=== PATIENT | male | born 1965 | race Caucasian/White ===

== ENCOUNTER 2017-09-28 17:45 | Emergency (ER) | payer BC ==
[2017-09-28] MEDS ORDERED: Ketorolac 30 MG/ML SDV IM ONE (19:06)
[2017-09-28] MEDS ORDERED: cefTRIAXone 1 GM, Lidocaine 1% 2.1 ML IM ONE ×2 (19:06)
--- NOTE | 2017-09-28 19:11 | EDM.PDOC ---
ED HPI GENERAL MEDICAL PROBLEM - General Chief Complaint: ENT Problem Stated Complaint: COLD [id number] Time Seen by Provider: 09/28/17 19:07 Source of Information: Reports: Patient History Limitations: Reports: No Limitations - History of Present Illness INITIAL COMMENTS - FREE TEXT/NARRATIVE: c/o few days h/o increasing sore throat Throat Pain Score (Numeric/FACES): 7 - Related Data Allergies Allergy/AdvReac Type Severity Reaction Status Date / Time Penicillins Allergy Hives Verified 09/28/17 18:00 Home Meds: Home Meds Albuterol [Proventil Neb Soln] 1 dose INH TID PRN 09/28/17 [History] Past Medical History HEENT History: Reports: None Cardiovascular History: Reports: None Respiratory History: Reports: SOB Gastrointestinal History: Reports: None Genitourinary History: Reports: None Musculoskeletal History: Reports: None Neurological History: Reports: None Psychiatric History: Reports: None Endocrine/Metabolic History: Reports: None Hematologic History: Reports: None Immunologic History: Reports: None Oncologic (Cancer) History: Reports: None Dermatologic History: Reports: None - Infectious Disease History Infectious Disease History: Reports: None Social & Family History - Tobacco Use Smoking Status *Q: Current Every Day Smoker Years of Tobacco use: 35 Packs/Tins Daily: 1 Second Hand Smoke Exposure: No - Caffeine Use Caffeine Use: Reports: Coffee - Recreational Drug Use Recreational Drug Use: No ED ROS ENT - Review of Systems Review Of Systems: ROS reveals no pertinent complaints other than HPI. ED EXAM, ENT - Physical Exam Exam: See Below Exam Limited By: No Limitations General Appearance: Alert, WD/WN, Mild Distress, Other (discomfort) Ears: Hearing Grossly Normal Mouth/Throat: Pharyngeal Erythema, Tonsillar Erythema, Tonsillar Swelling Head: Atraumatic Neck: Non-Tender, Full Range of Motion Respiratory/Chest: No Respiratory Distress Cardiovascular: Regular Rate, Rhythm GI/Abdominal: Soft, Non-Tender Neurological: Alert, Oriented, Normal Cognition, Normal Gait, No Motor/Sensory Deficits Psychiatric: Flat Affect Skin: Warm, Dry, Normal Color Lymphatic: No Adenopathy Course - Vital Signs Last Recorded V/S: Last Vital Signs Temp 36.6 C 09/28/17 17:51 Pulse 88 09/28/17 17:51 Resp 16 09/28/17 17:51 BP 192/104 H 09/28/17 17:51 Pulse Ox 97 01/20/18 17:51 - Orders/Labs/Meds Orders: Active Orders 24 hr Category Date Time Status CULTURE STREP A CONFIRMATION [] Stat Lab 09/28/17 17:55 Results STREP SCRN A RAPID W CULT CONF [] Stat Lab 09/28/17 17:55 Results Ketorolac [Toradol] Med 09/28/17 19:06 Once 30 mg IM ONETIME ONE cefTRIAXone 1 GM,Lidocaine 1% 2.1 ML Med 09/28/17 19:06 Ordered cefTRIAXone [Rocephin] 1 gm Lidocaine 1% [Xylocaine-MPF 1%] 2.1 ml IM ONETIME Medication Orders Ceftriaxone Sodium 1 gm/ (Lidocaine HCl 2.1 ml) 0 gm IM ONETIME ONE Stop: 09/28/17 19:07 Ketorolac Tromethamine (Toradol) 30 mg IM ONETIME ONE Stop: 09/28/17 19:07 Meds: Medications Generic Name Dose Route Start Last Admin Trade Name Abbeq PRN Reason Stop Dose Admin Ceftriaxone Sodium 1 gm/ 0 gm 09/28/17 19:06 Lidocaine HCl 2.1 ml IM 09/28/17 19:07 ONETIME ONE Ketorolac Tromethamine 30 mg 09/28/17 19:06 Toradol IM 09/28/17 19:07 ONETIME ONE Departure - Departure Time of Disposition: 19:09 Disposition: Home, Self-Care 01 Condition: Good Clinical Impression: Tonsillitis - Discharge Information Instructions: Tonsillitis, [id number] Additional Instructions: 1) avoid solid foods and scratchy foods next few days 2) have popsicle, jello, juice, smoothies, broth 3) take tylenol or motrin for fever 4) recheck as needed rx given; z-coco - My Orders Last 24 Hours: My Active Orders 09/28/17 19:06 Ketorolac [Toradol] 30 mg IM ONETIME ONE cefTRIAXone 1 GM,Lidocaine 1% 2.1 ML cefTRIAXone [Rocephin] 1 gm Lidocaine 1% [ Xylocaine-MPF 1%] 2.1 ml IM ONETIME - Assessment/Plan Last 24 Hours: My Active Orders 09/28/17 19:06 Ketorolac [Toradol] 30 mg IM ONETIME ONE cefTRIAXone 1 GM,Lidocaine 1% 2.1 ML cefTRIAXone [Rocephin] 1 gm Lidocaine 1% [ Xylocaine-MPF 1%] 2.1 ml IM ONETIME
== END 2017-09-28 19:33 | disposition home or self-care (01) ==
LOC: DL.ED 17:45
DX: J03.90 Acute tonsillitis, unspecified (principal); F17.210 Nicotine dependence, cigarettes, uncomplicated; Z88.0 Allergy status to penicillin
CPT/HCPCS: 87081; 87430; 96372; 99283; J0696; J1885

== ENCOUNTER 2019-06-01 14:55 | Inpatient (IN) | payer BC ==
--- NOTE | 2019-06-01 15:27 | EDM.PDOC ---
ED HPI GENERAL MEDICAL PROBLEM - General Chief Complaint: Lower Extremity Injury/Pain Stated Complaint: BLOOD CLOUGHT IN RIGHT LEG PER PT Time Seen by Provider: 06/01/19 15:27 Source of Information: Reports: Patient, Family, Provider (Estella Calloway PA-C), RN, RN Notes Reviewed History Limitations: Reports: No Limitations - History of Present Illness INITIAL COMMENTS - FREE TEXT/NARRATIVE: Pt to ER from [facility] with c/o DVT. Patient was seen in the clinic by Estella Calloway PA-C for pain, redness, swelling, warmth, to the right lower leg. Patient was sent to radiology for Ultrasound. Was found to have an extensive DVT in the right lower leg. Patient states the pain in the leg began last week . States it has progressively gotten worse. Patient admits to increased SOB recently. Denies chest pains. Denies hx of blood clots, denies recent travel (flying or long drives). States he smoke 1 1/2 packs per day. Onset: Gradual Duration: Constant, Getting Worse Location: Reports: Lower Extremity, Right Quality: Reports: Ache, Throbbing Right Lower Leg Pain Score (Numeric/FACES): 6 - Related Data Allergies Allergy/AdvReac Type Severity Reaction Status Date / Time Penicillins Allergy Hives Verified 09/28/17 18:00 Home Meds: Home Meds Albuterol [Proventil Neb Soln] 1 dose INH TID PRN 09/28/17 [History] Past Medical History - Past Health History Medical/Surgical History: Denies Medical/Surgical History HEENT History: Reports: None Cardiovascular History: Reports: None Respiratory History: Reports: SOB Gastrointestinal History: Reports: None Genitourinary History: Reports: None Musculoskeletal History: Reports: None Neurological History: Reports: None Psychiatric History: Reports: None Endocrine/Metabolic History: Reports: None Hematologic History: Reports: None Immunologic History: Reports: None Oncologic (Cancer) History: Reports: None Dermatologic History: Reports: None - Infectious Disease History Infectious Disease History: Reports: None - Past Surgical History Musculoskeletal Surgical History: Reports: Shoulder Surgery Social & Family History - Family History Family Medical History: Noncontributory - Caffeine Use Caffeine Use: Reports: Coffee, Soda Review of Systems - Review of Systems Review Of Systems: ROS reveals no pertinent complaints other than HPI. ED EXAM, GENERAL - Physical Exam Exam: See Below Exam Limited By: No Limitations General Appearance: Alert, WD/WN, No Apparent Distress Eye Exam: Bilateral Eye: EOMI, Normal Inspection Ears: Normal External Exam, Hearing Grossly Normal Nose: Normal Inspection Throat/Mouth: Normal Inspection, Normal Voice, No Airway Compromise Head: Atraumatic, Normocephalic Neck: Normal Inspection, Supple, Non-Tender, Full Range of Motion Respiratory/Chest: No Respiratory Distress, No Accessory Muscle Use, Chest Non- Tender, Crackles (bases bilaterally) Cardiovascular: Normal Peripheral Pulses, Regular Rate, Rhythm, No Edema, No Gallop, No JVD, No Murmur, No Rub Peripheral Pulses: 2+: Radial (L), Radial (R) GI/Abdominal: Normal Bowel Sounds, Soft, Non-Tender, No Organomegaly, No Distention, No Abnormal Bruit, No Mass, Pelvis Stable (Male) Exam: Deferred Rectal (Males) Exam: Deferred Back Exam: Normal Inspection, Full Range of Motion, NT Extremities: Yani's Sign, Leg Pain (right lower leg), Increased Warmth (right lower leg), Redness (right lower leg), Other (swelling of the right lower leg) Neurological: Alert, Oriented, CN II-XII Intact, Normal Cognition, Normal Gait, Normal Reflexes, No Motor/Sensory Deficits Psychiatric: Normal Affect, Normal Mood Skin Exam: Warm, Dry, Intact, Erythema (right lower leg), Increased Warmth ( right lower leg) Lymphatic: No Adenopathy Course - Vital Signs Last Recorded V/S: Last Vital Signs Temp 97.3 F 06/01/19 18:02 Pulse 80 06/01/19 18:02 Resp 20 06/01/19 18:02 BP 154/102 H 06/01/19 18:02 Pulse Ox 96 06/01/19 18:02 - Orders/Labs/Meds Orders: Active Orders 24 hr Category Date Time Status EKG Documentation Completion [RC] STAT Care 06/01/19 15:14 Active Chest w Cont [CT] Urgent Exams 06/01/19 16:06 Taken Sodium Chloride 0.9% [Saline Flush] Med 06/01/19 15:10 Active 10 ml FLUSH ASDIRECTED PRN Peripheral IV Insertion Adult [OM.PC] Stat Oth 06/01/19 15:10 Ordered Medication Orders Acetaminophen (Tylenol) 650 mg PO Q4H PRN PRN Reason: Pain (Mild 1-3)/fever Albuterol (Proventil Neb Soln) 2.5 mg NEB Q2H PRN PRN Reason: shortness of breath/wheezing Enoxaparin Sodium (Lovenox) 100 mg SUBCUT Q12HR [facility] Sodium Chloride (Normal Saline) 1,000 mls @ 75 mls/hr IV ASDIRECTED [facility] Ceftriaxone Sodium 1 gm/ (Sodium Chloride) 50 mls @ 50 mls/hr IV Q24H [facility] Insulin Human Lispro (Humalog) 0 unit SUBCUT WITHMEALSANDBED CARMELA; Protocol Morphine Sulfate (Morphine) 2 mg IVPUSH Q2H PRN PRN Reason: Pain (severe 7-10) Nicotine (Habitrol) 21 mg TRDERM DAILY [facility] Oxycodone HCl (Oxycodone) 5 mg PO Q4H PRN PRN Reason: Pain (moderate 4-6) Sodium Chloride (Saline Flush) 10 ml FLUSH ASDIRECTED PRN PRN Reason: Keep Vein Open Last Admin: 06/01/19 16:18 Dose: 10 ml Warfarin Sodium (Coumadin) 5 mg PO DAILY [facility] Labs: Laboratory Tests 06/01/19 06/01/19 06/01/19 Range/Units 15:19 15:19 15:19 WBC 6.7 (5.0-10.0) 10^3/uL RBC 5.10 (4.6-6.2) 10^6/uL Hgb 16.7 (14.0-18.0) g/dL Hct 47.1 (40.0-54.0) % MCV 92.4 (80-100) fL MCH 32.7 (27.0-34.0) pg MCHC 35.5 H (33.0-35.0) g/dL Plt Count 154 (150-450) 10^3/uL Neut % (Auto) 63.7 (42.2-75.2) % Lymph % (Auto) 22.0 (20.5-50.1) % [place] % (Auto) 12.1 H (2-8) % Eos % (Auto) 2.1 (1.0-3.0) % Baso % (Auto) 0.1 (0.0-1.0) % PT 9.6 (9.0-12.0) SEC INR 0.9 (0.9-1.2) D-Dimer, Quantitative 1190 H (0-400) ng/mL Sodium 134 L (135-145) mmol/L Potassium 4.1 (3.6-5.0) mmol/L Chloride 98 L (101-111) mmol/L Carbon Dioxide 27.0 (21.0-31.0) mmol/L Anion Gap 13.1 BUN 13 (7-18) mg/dL Creatinine 0.8 (0.6-1.3) mg/dL Est Cr Clr Drug Dosing 110.26 mL/min Estimated GFR (MDRD) > 60 BUN/Creatinine Ratio 16.25 Glucose 329 H (74-105) mg/dL Calcium 9.0 (8.4-10.2) mg/dl Total Bilirubin 0.8 (0.2-1.0) mg/dL AST 41 (10-42) IU/L ALT 65 H (10-60) IU/L Alkaline Phosphatase 56 (42-121) IU/L Total Protein 7.8 (6.7-8.2) g/dl Albumin 4.0 (3.2-5.5) g/dl Globulin 3.8 Albumin/Globulin Ratio 1.05 Meds: Medications Generic Name Dose Route Start Last Admin Trade Name Freq PRN Reason Stop Dose Admin Acetaminophen 650 mg 06/01/19 18:02 Tylenol PO Q4H PRN Pain (Mild 1-3)/fever Albuterol 2.5 mg 06/01/19 18:02 Proventil Neb Soln NEB Q2H PRN shortness of breath/wheezing Enoxaparin Sodium 100 mg 06/01/19 21:00 Lovenox SUBCUT Q12HR [facility] Sodium Chloride 1,000 mls @ 75 mls/hr 06/01/19 18:15 Normal Saline IV ASDIRECTED [facility] Ceftriaxone Sodium 1 gm/ 50 mls @ 50 mls/hr 06/01/19 18:15 Sodium Chloride IV Q24H [facility] Insulin Human Lispro 0 unit 06/01/19 21:00 Humalog SUBCUT WITHMEALSANDBED [facility] Protocol Morphine Sulfate 2 mg 06/01/19 18:02 Morphine IVPUSH Q2H PRN Pain (severe 7-10) Nicotine 21 mg 06/02/19 09:00 Habitrol TRDERM DAILY [facility] Oxycodone HCl 5 mg 06/01/19 18:02 Oxycodone PO Q4H PRN Pain (moderate 4-6) Sodium Chloride 10 ml 06/01/19 15:10 06/01/19 16:18 Saline Flush FLUSH 10 ml ASDIRECTED PRN Administration Keep Vein Open Warfarin Sodium 5 mg 06/01/19 18:15 Coumadin PO DAILY [facility] Discontinued Medications Generic Name Dose Route Start Last Admin Trade Name Freq PRN Reason Stop Dose Admin Heparin Sodium (Porcine) 4,000 units 06/01/19 15:40 06/01/19 16:17 Heparin Sodium IVPUSH 06/01/19 15:41 4,000 units .BOLUS ONE Administration Heparin Sodium/Sodium Chloride 25,000 units in 500 mls @ 35.631 mls/hr 15:45 06/01/19 16:18 Heparin 25,000 Units In 1/2 Ns 500 Ml IV 18 units/kg/hr TITRATE CARMELA 35.631 mls/hr Administration Protocol 18 UNITS/KG/HR Iopamidol 100 ml 06/01/19 16:06 06/01/19 16:39 Isovue-370 (76%) IVPUSH 06/01/19 16:07 80 ml ONETIME ONE Administration Morphine Sulfate 2 mg 06/01/19 16:20 06/01/19 16:29 Morphine IVPUSH 06/01/19 16:21 2 mg ONETIME ONE Administration - Radiology Interpretation Free Text/Narrative:: Venous Doppler Lower ext. Right: Deep vein thrombosis right lower extremity See rad report PE study/ chest CT with contrast: FINDINGS: Lungs: There is calcified granuloma right middle lobe. 3 mm nodule right lung base Pleural space: Unremarkable. No pneumothorax. No pleural effusion. Heart: Unremarkable. No cardiomegaly. No pericardial effusion. Aorta: Unremarkable. No aortic aneurysm. Lymph nodes: Unremarkable. No enlarged lymph nodes. Liver: Liver has peripheral nodular contour. Gallbladder and bile ducts: There is a calcified gallstone. Bones/joints: Unremarkable. No acute fracture. Soft tissues: Unremarkable. IMPRESSION: 1. No acute pulmonary embolism. 2. Suggestion of mild hepatic cirrhosis 3. Cholelithiasis 4. 3 mm right lower lobe nodule.For patients at low risk (minimal or absent history of smoking and of other known risk factors), no routine follow-up is indicated. For patients at high risk (history of smoking or of other known risk factors), consider optional CT at 12 months. ( Tonia et al., Fleischner Society, 2017) Thank you for allowing us to participate in the care of your patient. Dictated and Authenticated by: Jose Yen MD 06/01/2019 5:01 PM Central Time ([place] & [place]) - Re-Assessments/Exams Free Text/Narrative Re-Assessment/Exam: 06/01/19 18:43 Discussed patient case with Dr. Patel who agreed to accept the patient for inpatient admission to [facility]. Departure - Departure Time of Disposition: 17:15 Disposition: Admitted As Inpatient 66 Condition: Fair Clinical Impression: Hyperglycemia DVT (deep venous thrombosis) Qualifiers: DVT location: lower extremity Affected thrombotic vein of extremity: popliteal Chronicity: acute Laterality: right Qualified Code(s): I82.431 - Acute embolism and thrombosis of right popliteal vein - Discharge Information *PRESCRIPTION DRUG MONITORING PROGRAM REVIEWED*: No *COPY OF PRESCRIPTION DRUG MONITORING REPORT IN PATIENT JOLIE: No - My Orders Last 24 Hours: My Active Orders 06/01/19 15:10 Sodium Chloride 0.9% [Saline Flush] 10 ml FLUSH ASDIRECTED PRN Peripheral IV Insertion Adult [OM.PC] Stat 06/01/19 15:14 EKG Documentation Completion [RC] STAT 06/01/19 16:06 Chest w Cont [CT] Urgent - Assessment/Plan Last 24 Hours: My Active Orders 06/01/19 15:10 Sodium Chloride 0.9% [Saline Flush] 10 ml FLUSH ASDIRECTED PRN Peripheral IV Insertion Adult [OM.PC] Stat 06/01/19 15:14 EKG Documentation Completion [RC] STAT 06/01/19 16:06 Chest w Cont [CT] Urgent
[2019-06-01] MEDS ORDERED: Heparin Sodium 5,000 Units/ML Vial IVPUSH ONE (15:40)
[2019-06-01] MEDS ORDERED: Heparin Sodium/0.45% NaCl 25,000 UNITS/500 ML BAG IV SCH (15:45)
[2019-06-01 15:51] LABS: ANION GAP 13.1; CHLORIDE,CL 98 mmol/L (101-111); SODIUM,NA 134 mmol/L (135-145)
[2019-06-01] MEDS ORDERED: Iopamidol 755 Mg/ML 100 ML Bottle IVPUSH ONE (16:06)
[2019-06-01] MEDS: Sodium Chloride 0.9% 10 ML Syringe FLUSH PRN ×2 (16:18→19:22)
[2019-06-01] MEDS ORDERED: Morphine 2 MG/ML Syringe IVPUSH ONE (16:20)
[2019-06-01] MEDS ORDERED: Morphine 2 MG/ML Syringe IVPUSH PRN (18:02)
[2019-06-01] MEDS ORDERED: Acetaminophen 325 MG Tab PO PRN (18:02)
[2019-06-01] MEDS ORDERED: Albuterol 0.083% 2.5 MG/3 ML Neb Soln NEB PRN (18:02)
[2019-06-01] MEDS ORDERED: Warfarin 5 MG Tab PO SCH (18:15)
[2019-06-01] MEDS ORDERED: Sodium Chloride 0.9% 1,000 ML IV SCH (18:15)
[2019-06-01] MEDS: cefTRIAXone 1 GM in Sodium Chloride 0.9% 50 ML IV SCH (19:55)
[2019-06-01] MEDS: oxyCODONE 5 MG Tab PO PRN (20:02)
[2019-06-01] MEDS: Nicotine 21 MG/24 Hr Patch TRDERM SCH (21:20)
[2019-06-01] MEDS: Enoxaparin 100 MG/1 ML Syringe SUBCUT SCH (21:20)
[2019-06-01] MEDS: Insulin Lispro 100 Units/ML 3 ML Vial SUBCUT SCH (21:22)
[2019-06-01] MEDS ORDERED: Warfarin 2.5 MG Tab PO ONE (22:00)
--- NOTE | 2019-06-02 00:14 | HP ---
CHIEF COMPLAINT: Acute DVT of the right leg. HISTORY OF PRESENT ILLNESS: The patient is a 53-year-old male, was admitted through the emergency room after the patient was diagnosed at the [facility] with acute DVT of the right lower leg. According to the patient, he has been having this pain and swelling of the right lower leg that has been going on for the last 5 days. He denies any injury or trauma. He does admit that he is short of breath, but denies any chest pain, abdominal pain, melena, hematochezia, or any bleeding tendencies. Because of these above symptoms, he was seen at the [facility] and had ultrasound of the right leg, which showed extensive DVT of the right lower leg. The patient was then sent to the emergency room. He had a CAT scan of the chest and there was no pulmonary embolism noted, but there is cholelithiasis and there is a 3 mm right lower lobe nodule on the CAT scan of the chest, and because of this acute DVT of the right lower leg, he was then admitted for further evaluation and management. PAST MEDICAL HISTORY: Denies any significant past medical history. FAMILY HISTORY: Noncontributory. There is no history of DVT or pulmonary embolism. SOCIAL HISTORY: The patient is a smoker, 1-1/2 packs a day, and drinks alcohol/beer on a regular basis, but no illicit drug use. REVIEW OF SYSTEMS: As in HPI. The rest of the review of systems is negative. The patient denies any flying or long drives. HOME MEDICATION: Albuterol p.r.n. ALLERGIES: Penicillin. PHYSICAL EXAMINATION: GENERAL: The patient is alert and oriented, not in any acute respiratory distress. VITAL SIGNS: Blood pressure is 149/74, pulse of 70, respirations 16, temperature of 98.1, saturation is 99%. SHEENT: Normocephalic. There are pink palpebral conjunctivae. Sclerae anicteric. No JVD, no lymphadenopathy. HEART: Regular rate and rhythm. Normal S1 and S2. No gallops. No rubs. No murmurs. LUNGS: Remarkable for scattered expiratory wheeze bilaterally. ABDOMEN: Soft, nontender, bowel sounds positive. EXTREMITIES: Negative for any signs of cellulitis, but there is some mild redness and swelling and tenderness on the right lower leg. LABORATORY WORKUP: CBC: WBC 6.7, hemoglobin is 16.7, hematocrit is 47.1, platelets 154. D-dimer is 1190. Comp panel: Sodium is 134, glucose is 329. ALT is 65, the rest of the panel unremarkable. ADMITTING DIAGNOSES: 1. Acute deep venous thrombosis of the right lower leg. 2. Tobacco habituation. 3. Acute bronchitis. 4. Hyperglycemia, suspected diabetes mellitus. TREATMENT PLAN: The patient is going to be admitted to General Medicine Floor. The patient was started on heparin drip in the emergency room and this will be continued. We will also start the patient on Coumadin, and he will be given IV antibiotics for bronchitis symptoms and signs of COPD, and we will also check for hemoglobin A1c. The rest of the management as necessary. The patient is a full code. [facility] /[id number]
[2019-06-02 06:47] LABS: ANION GAP 11.1; CHLORIDE,CL 97 mmol/L (101-111); SODIUM,NA 133 mmol/L (135-145)
[2019-06-02] MEDS: oxyCODONE 5 MG Tab PO PRN ×3 (07:32→21:03)
[2019-06-02] MEDS: Insulin Lispro 100 Units/ML 3 ML Vial SUBCUT SCH ×4 (08:15→21:01)
[2019-06-02] MEDS: Nicotine 21 MG/24 Hr Patch TRDERM SCH (08:16)
[2019-06-02] MEDS: Enoxaparin 100 MG/1 ML Syringe SUBCUT SCH ×2 (08:16→21:05)
[2019-06-02] MEDS ORDERED: Sodium Chloride 0.9% 10 ML Syringe FLUSH PRN (09:04)
[2019-06-02] MEDS: predniSONE 20 MG Tab PO SCH (10:20)
[2019-06-02] MEDS: Azithromycin 250 MG Tab PO SCH (10:21)
--- NOTE | 2019-06-02 11:46 | PN ---
DATE: 06/02/2019 SUBJECTIVE: The patient did not have a good night's sleep because of the right lower leg pain and also with regard to his wheezing and some shortness of breath. The patient denies though any chest pain, orthopnea, PND, abdominal pain, nor any other complaints. LABORATORY DATA: Lab workup this morning: CBC; WBC 6.4, hemoglobin is 15.7, hematocrit is 44.6, platelet is 162. ProTime is 9.7, INR is 0.9. Comp panel; sodium is 133, chloride of 97, glucose is 221. A1c is still pending. OBJECTIVE: Vital Signs: Blood pressure is 146/86, pulse 82, respirations 20, and temperature of 97.2. Heart: Regular rate and rhythm. Normal S1 and S2. No gallops. No rubs. Lungs: Still remarkable for scattered wheezing and some rhonchi in both lung marquis. Abdomen: Soft and nontender. Bowel sounds positive. Extremities: Still remarkable for some mild redness and swelling on the right lower leg. PLAN: We will discontinue his IV fluids. I am going to change his albuterol to 4 times a day and as needed, and we will also start the patient on prednisone 40 mg daily for the wheezing and COPD exacerbation. We will also add Zithromax to his antibiotics, and we will continue with his Lovenox and Coumadin, and Pharmacy is dosing the Coumadin. [facility] /[id number]
[2019-06-02] MEDS: Albuterol 0.083% 2.5 MG/3 ML Neb Soln NEB SCH ×2 (13:31→18:09)
[2019-06-02] MEDS ORDERED: Warfarin 2.5 MG Tab PO ONE (14:00)
[2019-06-02] MEDS: Sodium Chloride 0.9% 10 ML Syringe FLUSH PRN ×2 (18:06→19:03)
[2019-06-02] MEDS: cefTRIAXone 1 GM in Sodium Chloride 0.9% 50 ML IV SCH (18:08)
[2019-06-03] MEDS: Albuterol 0.083% 2.5 MG/3 ML Neb Soln NEB SCH ×2 (00:50→07:26)
[2019-06-03] MEDS: oxyCODONE 5 MG Tab PO PRN ×2 (07:48→12:56)
[2019-06-03] MEDS: Enoxaparin 100 MG/1 ML Syringe SUBCUT SCH (08:37)
[2019-06-03] MEDS: predniSONE 20 MG Tab PO SCH (08:37)
[2019-06-03] MEDS: Azithromycin 250 MG Tab PO SCH (08:37)
[2019-06-03] MEDS: Insulin Lispro 100 Units/ML 3 ML Vial SUBCUT SCH ×2 (08:38→12:00)
[2019-06-03] MEDS: Nicotine 21 MG/24 Hr Patch TRDERM SCH (08:39)
[2019-06-03] MEDS: Sodium Chloride 0.9% 10 ML Syringe FLUSH PRN (08:46)
--- NOTE | 2019-06-03 13:48 | DISCH ---
ADMITTING DIAGNOSES: 1. Acute deep venous thrombosis of the right lower extremity. 2. Acute bronchitis. 3. Hyperglycemia. DISCHARGE DIAGNOSES: 1. Acute deep venous thrombosis of the right lower extremity, currently on Lovenox and Coumadin. 2. Acute bronchitis treated with prednisone and oral antibiotics in the hospital. 3. Newly diagnosed type 2 diabetes mellitus with hemoglobin A1c of 10 suggestive for diabetes mellitus. Started on metformin. HISTORY OF PRESENTING ILLNESS: Mr. Noah Zheng is a 53-year-old male with no significant past medical history, who was admitted to the hospital after he was complaining of increasing pain and swelling to the right lower extremity. The patient had an ultrasound Doppler of the right lower extremity as an outpatient and was noted to have acute DVT involving the popliteal vein and also extending into the lower calf involving the tibial vein. No clot noted in the femoral vein or any clot in the thigh. The patient was started on Lovenox and Coumadin on this admission. He was also noted to have wheezing at the time of admission suggestive of acute bronchitis. He was treated with IV ceftriaxone and oral Zithromax on this admission. He was also given short course of prednisone after which his breathing got better. He was also noted to have elevated blood sugars. We did check a hemoglobin A1c on this admission, which was around 10 suggestive of his newly diagnosed diabetes mellitus. The patient was educated about checking his fingersticks 2-3 times a day at home. He was started on metformin 850 mg twice a day. He is educated about diet and exercise for good control of his diabetes. He is educated about lifestyle modification. He is advised to check his fingersticks 3 times a day at home and follow with primary care physician. If his sugars are still elevated, he might benefit from initiating insulin regimen at that time. The patient is also educated about Lovenox shots and Coumadin. He is also educated about the risks benefits complications of anticoagulation treatment. Also educated about potential bleed and Coumadin treatment, which he understands and verbalized the same. He is advised to stay away from strenuous activity in the 1-2 weeks of time and advised him to keep his right lower extremity elevated for better healing. He is discharged home in stable condition. He remained hemodynamically stable on this admission. He had a CT scan of the chest, which did not show any evidence of acute pulmonary embolism. He is advised to follow with his primary care physician on Saturday and check an INR at that time. He will continue with subcutaneous Lovenox in the next 3 days to complete a bridge therapy for Coumadin. DISCHARGE MEDICATIONS: Include: 1. Tylenol 650 every 4 hours as needed for pain and fever. 2. Albuterol 1 puff inhalation 3 times a day as needed for shortness of breath. 3. Combivent 3 times a day as needed. 4. Lovenox 100 mg subcutaneous q.12 hourly. 5. Nicotine transdermal patch 21 mg daily. 6. Coumadin 7.5 mg daily. 7. Metformin 850 mg twice a day. 8. Oxycodone 5 mg every 6 hours as needed for severe pain for next 5 days. PHYSICAL EXAMINATION ON THE DAY OF DISCHARGE: Vital Signs: Temperature of 97..5, pulse of 75, blood pressure 149/95, respiratory rate of 18, and saturating at 96% on room air. General Appearance: The patient is well oriented to time, place, and person. Follows commands spontaneously. Cardiovascular: S1 and S2 heard with normal intensity. No gallops. Respiratory: Clear to auscultation bilaterally. No wheeze. No crepitations. Abdomen: Soft. Bowel sounds positive. Nontender. No rigidity. Extremities: No edema in bilateral lower extremities. Mild swelling noted to the right lower extremity. CONDITION ON ADMISSION: Poor. CONDITION ON DISCHARGE: Stable. Discharged to home. ACTIVITY: As tolerated. DIET: Consistent carbohydrate diet. FOLLOWUP: Follow with primary care physician on this coming Saturday, which is June 05 and check an INR and provide log book to the primary care physician for further treatment of his diabetes. [facility] /[id number]
[2019-06-03] MEDS ORDERED: Warfarin 2.5 MG Tab PO ONE (14:00)
== END 2019-06-03 13:00 | disposition home or self-care (01) | DRG 197 ==
LOC: DL.ED 14:55 → DL.MS 17:45
PROVIDERS: ADMIT Internal Medicine; ATTEND Internal Medicine
DX: I82.431 Acute embolism and thrombosis of right popliteal vein (principal); I82.441 Acute embolism and thrombosis of right tibial vein; J44.0 Chronic obstructive pulmonary disease with (acute) lower respiratory infection; J44.1 Chronic obstructive pulmonary disease with (acute) exacerbation; J20.9 Acute bronchitis, unspecified; E11.65 Type 2 diabetes mellitus with hyperglycemia; F17.210 Nicotine dependence, cigarettes, uncomplicated; Z88.0 Allergy status to penicillin; Z79.899 Other long term (current) drug therapy; M79.661 Pain in right lower leg
CPT/HCPCS: 36415; 71260; 80048; 80053; 82962; 83036; 85025; 85379; 85610; 93005; 93971; 94640; 96365; 96375; 99285-25; A9270-GY; J0696; J1644; J1650; J1815; J2270; J7030; J7050; J7613-GY; Q9967

== ENCOUNTER 2021-03-17 12:19 | Emergency (ER) | payer BC ==
[2021-03-17] MEDS ORDERED: Orphenadrine 60 MG/2 ML Inj IM ONE (12:59)
[2021-03-17] MEDS ORDERED: methylPREDNISolone Sodium Succinate 125 MG/2 ML SDV IM ONE (13:06)
--- NOTE | 2021-03-17 13:42 | EDM.PDOC ---
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 The patient reports his pain originated in his back two days ago while he was working on his vehicle. He noticed tightness and spasming in his left lower back that radiated into his left anterior leg. He characterizes the pain as waxing and waning between sharp and aching in nature. He states he has been to one therapy session with PT yesterday and one appointment with his chiropractor this morning. He feels his back is better but continues to experience residual pain in his left upper leg. He denies history of back injury, left hip injury, inability to void/stool, incontinence of bowel/bladder, or saddle paraesthesia. The patient has taken Tylenol #3 as well as alternated heat/ice to the affected area with [id number] alleviation of pain. Treatments [employer]: Reports: Acetaminophen, Cold Therapy, Other Medication(s) left leg/back Pain Score (Numeric/FACES): 8 - Related Data Allergies Allergy/AdvReac Type Severity Reaction Status Date / Time Penicillins Allergy Severe Hives Verified 03/17/21 12:43 Home Meds: Home Meds Albuterol [Proventil Neb Soln] 1 dose INH Q4H PRN 09/28/17 [History] Acetaminophen [Tylenol] 650 mg PO Q4H PRN #30 tablet 06/03/19 [Rx] Albuterol/Ipratropium [Combivent Respimat] 4 gm IH BID PRN #1 aer.w.adap 06/03/19 [Rx] Nicotine [Habitrol] 21 mg TRDERM DAILY 7 Days #7 patch 06/03/19 [Rx] Semaglutide [Rybelsus] 14 mg PO DAILY 08/30/20 [History] Sildenafil [Viagra] 100 mg PO .WHEN NEEDED PRN 08/30/20 [History] clonazePAM [Clonazepam] 1 mg PO BEDTIME 08/30/20 [History] metFORMIN HCl [Metformin HCl] 500 mg PO BEDTIME 08/30/20 [History] Losartan [Cozaar] 25 mg PO .Q48H 03/17/21 [History] Warfarin Sodium [Jantoven] 12.5 mg PO BEDTIME 03/17/21 [History] Past Medical History - Past Health History Medical/Surgical History: Denies Medical/Surgical History HEENT History: Reports: None Cardiovascular History: Reports: Blood Clots/VTE/DVT, Hypertension Respiratory History: Reports: SOB Gastrointestinal History: Reports: None Genitourinary History: Reports: None Musculoskeletal History: Reports: None Neurological History: Reports: None Psychiatric History: Reports: None Endocrine/Metabolic History: Reports: Diabetes, Type II Hematologic History: Reports: None Immunologic History: Reports: None Oncologic (Cancer) History: Reports: None Dermatologic History: Reports: None - Infectious Disease History Infectious Disease History: Reports: None - Past Surgical History GI Surgical History: Reports: Cholecystectomy Musculoskeletal Surgical History: Reports: Shoulder Surgery Social & Family History - Family History Family Medical History: No Pertinent Family History - Tobacco Use Tobacco Use Status *Q: Current Every Day Tobacco User Years of Tobacco use: 39 Packs/Tins Daily: 1 - Caffeine Use Caffeine Use: Reports: None - Alcohol Use Days Per Week of Alcohol Use: 7 Number of Drinks Per Day: 2 Total Drinks Per Week: 14 - Recreational Drug Use Recreational Drug Use: No Review of Systems - Review of Systems Review Of Systems: Comprehensive ROS is negative, except as noted in HPI. ED EXAM, GENERAL - Physical Exam Exam: See Below Exam Limited By: No Limitations General Appearance: Alert, No Apparent Distress Eye Exam: Bilateral Eye: EOMI, Normal Inspection, PERRL (3mm) Ears: Normal External Exam, Hearing Grossly Normal Nose: Normal Inspection, Normal Mucosa, No Blood Throat/Mouth: Normal Inspection, Normal Oropharynx, Normal Voice, No Airway Compromise Head: Atraumatic, Normocephalic Neck: Normal Inspection, Supple, Non-Tender, Full Range of Motion. No: Lymphadenopathy (L), Lymphadenopathy (R) Respiratory/Chest: No Respiratory Distress, Lungs Clear, Normal Breath Sounds, No Accessory Muscle Use, Chest Non-Tender Cardiovascular: Normal Peripheral Pulses, Regular Rate, Rhythm, No Edema, No Gallop, No JVD, No Murmur, No Rub Peripheral Pulses: 2+: Radial (L), Radial (R) GI/Abdominal: Normal Bowel Sounds, Soft, Non-Tender, No Distention, No Abnormal Bruit, No Mass, Pelvis Stable (Male) Exam: Deferred Rectal (Males) Exam: Deferred Back Exam: Decreased Range of Motion, Muscle Spasm (To left ). No: Paraspinal Tenderness, Vertebral Tenderness Extremities: No Pedal Edema, Normal Capillary Refill, Leg Pain (To anterior and posterior left leg), Limited Range of Motion (To left leg). No: Joint Swelling, Yani's Sign, Increased Warmth, Mottled, Pallor, Redness Neurological: Alert, Oriented, CN II-XII Intact, Normal Cognition, Normal Gait, No Motor/Sensory Deficits Psychiatric: Normal Affect, Normal Mood Skin Exam: Warm, Dry, Intact, Normal Color, No Rash. No: Cyanosis, Ecchymosis, Erythema, Jaundice, Mottled, Pallor, Petechiae Course - Vital Signs Last Recorded V/S: Last Vital Signs Temp 97.9 F 03/17/21 12:34 Pulse 84 03/17/21 12:34 Resp 20 03/17/21 12:34 BP 169/98 H 03/17/21 12:34 Pulse Ox 97 03/17/21 12:34 - Orders/Labs/Meds Meds: Medications Discontinued Medications Generic Name Dose Route Start Last Admin Trade Name Gilberto PRN Reason Stop Dose Admin Methylprednisolone Sodium Succinate 125 mg 03/17/21 13:06 03/17/21 13:16 Methylprednisolone Sodium Succinate 125 Mg/2 Ml Sdv IM 03/17/21 13:07 125 mg ONETIME ONE Administration Orphenadrine Citrate 60 mg 03/17/21 12:59 03/17/21 13:17 Orphenadrine 60 Mg/2 Ml Inj IM 03/17/21 13:00 60 mg ONETIME ONE Administration - Re-Assessments/Exams Free Text/Narrative Re-Assessment/Exam: 03/18/21 Findings of examination and imaging reviewed with patient and . Will treat muscle spasms with cyclobenzaprine. Patient instructed to follow up with his PCP for MRI and ongoing PT. Discussed supportive cares for pain as well as red flag signs and symptoms which would warrant reevaluation. Patient and verbalized understanding and agreement with the plan of care. Departure - Departure Time of Disposition: 14:16 Disposition: Home, Self-Care 01 Condition: Good Clinical Impression: Muscle spasm of back, Spondylosis, Disc degeneration, lumbar - Discharge Information *PRESCRIPTION DRUG MONITORING PROGRAM REVIEWED*: Not Applicable *COPY OF PRESCRIPTION DRUG MONITORING REPORT IN PATIENT JOLIE: Not Applicable Instructions: Muscle Cramps and Spasms, [id number] Referrals: Karolina Anthony NP [Primary Care Provider] - Forms: ED Department Discharge Additional Instructions: Rx: cyclobenzaprine 1.) Follow up with primary care provider regarding today's visit, including need for MRI. 2.) Continue with alternating heat and ice to the affected area. 3.) You may try BioFreeze or Bengay to affected area, three times a day. 4.) Follow up with primary care provider, or return to the emergency department, with worsening symptoms despite medications or inability to void/stool or incontinence of bowel/bladder. Sepsis Event Note (ED) - Evaluation Sepsis Screening Result: No Definite Risk
--- NOTE | 2021-03-17 13:52 | CR ---
EXAMINATION: Lumbar Spine 3V SEX: Male AGE: 55 years CLINICAL HISTORY: 55-year-old male complaining of Left LOW BACK PAIN with radiation into leg. INTERPRETATION: Abnormal. 1. Intervertebral disc space narrowing with associated endplate sclerosis and hypertrophic marginal spondylosis L4-5, L5-S1, and less prominently at the L2-3 levels characteristic of chronic lower lumbar disc degeneration. 2. Decreased vertical height anteriorly of the T11 and T12 vertebra consistent with hyperflexion injury. 3. No sign of pathologic skeletal lesion, lumbar fracture or spondylolisthesis (dislocation). Symmetric spacing normal-appearing SI and hip joints. No arthritic degenerative change. CONCLUSION: Chronic multilevel lumbar disc disease. Arthritis. Unenhanced MRI would be next best, least invasive, diagnostic modality to consider.
== END 2021-03-17 14:27 | disposition home or self-care (01) ==
LOC: DL.ED 12:19
DX: M47.816 Spondylosis without myelopathy or radiculopathy, lumbar region (principal); M51.36 Other intervertebral disc degeneration, lumbar region; M62.830 Muscle spasm of back; E11.9 Type 2 diabetes mellitus without complications; I10 Essential (primary) hypertension; Z72.0 Tobacco use; Z79.01 Long term (current) use of anticoagulants; Z79.84 Long term (current) use of oral hypoglycemic drugs; Z79.899 Other long term (current) drug therapy; Z88.0 Allergy status to penicillin
CPT/HCPCS: 72100; 96372; 99283-25; J2360; J2930

== ENCOUNTER 2024-02-10 06:03 | Emergency (ER) | payer BC | END 2024-02-10 08:01 | LOC: DL.ED 06:03 | DX: Z53.21 Procedure and treatment not carried out due to patient leaving prior to being seen by health care provider (principal) ==